=== PATIENT | female | born 1955 | race Caucasian/White ===

== ENCOUNTER → 2018-05-08 | Outpatient (CLI) | payer OTHER ==
[~2018-05-08] MED LIST: CETI10 PO; CHLORHEXIDINE GLUCONATE 2 % 1 PACK (2 CLOTHS) TOPICAL PRN; CHOL1CAP34 PO; DEXTROSE 5%-LACTATED RING INJ 1,000 ML IV SCH; DICY10CA12 PO; DO NOT ADM ANY ANTICOAGULANT DRUGS PRN; DULO1CAP PO; KETAMINE HCL 500 MG/10 ML VIAL ONE; LACTATED RINGER'S 1000 ML IV PRN; LEVE500T8 PO; LIDOCAINE HCL 1% PF 5 ML SYRINGE OTHER ONE; LOMO2.5T PO; METOPROLOL TARTRATE 25 MG TAB PO PRN; MIDAZOLAM HCL 2 MG/2 ML VIAL ONE; MONT10TA4 PO; PROPOFOL 200 MG/20 ML AMP IV ONE; SODIUM CHLORID 0.9% 500 ML IV PRN; VENTAER INH; ZOLP10TA3 PO
[2018-05-08 08:24] VITALS: BP 172/88; PULSE 66; RESP 18; TEMP 98.9; O2SAT 97
--- NOTE | 2018-05-08 09:59 | GIPROC ---
[facility] [address] [facility]. [facility], [address] EGD PROCEDURE REPORT EXAM DATE: 05/08/2018 PATIENT NAME: Thalia Ochoa MR #: [id number] BIRTHDATE: 1955 ATTENDING: Alison Fonseca MD ORDER #: [id number] SEAMAN: Perico Condon and Yanique Bledsoe STATUS: outpatient INDICATIONS: The patient is a 63 yr old female here for an EGD due to diarrhea PROCEDURE PERFORMED: EGD w/ biopsy MEDICATIONS: None and Per Anesthesia. TOPICAL ANESTHETIC: none CONSENT: The patient understands the risks and benefits of the procedure and understands that these risks include, but are not limited to: sedation, allergic reaction, infection, perforation and/or bleeding. Alternative means of evaluation and treatment include, among others: physical exam, x-rays, and/or surgical intervention. The patient elects to proceed with this endoscopic procedure. medical equipment was checked for proper function. Hand hygiene and appropriate measures for infection prevention was taken. After the risks, benefits and alternatives of the procedure were thoroughly explained, Informed consent was verified, confirmed and timeout was successfully executed by the treatment team. The patient was anesthetized with topical anesthesia and the EC-3490Li (Pedi C) endoscope was introduced through the mouth and advanced to the second portion of the duodenum. Retroflexed views revealed a hiatal hernia The gastroscope was then slowly withdrawn and removed. Gastritis antrum-biopsy duodenum normal-biopsy Schatzki's ring-biopsy. ADVERSE EVENTS: There were no complications. IMPRESSIONS: 1. Gastritis antrum-biopsy duodenum normal-biopsy Schatzki's ring-biopsy 2. Retroflexed views revealed a hiatal hernia RECOMMENDATIONS: 1. Await biopsy results. Biopsy results will not be ready for 7-10 days. If you don't hear from us in two weeks, call our office for biopsy results. 2. Anti-reflux regimen 3. Continue PPI 4. Avoid NSAIDS PATIENT CONDITION: stable DISPOSITION: Home REPEAT EXAM: Return 3 years EGD Alison Fonseca MD eSigned: Alison Fonseca MD 05/08/2018 9:59 AM cc: Leslee Wagoner M.D. PATIENT NAME: Thalia Ochoa MR#: [id number]
--- NOTE | 2018-05-08 10:02 | GIPROC ---
[facility] [address] [facility]. [facility], [address] COLONOSCOPY PROCEDURE REPORT EXAM DATE: 05/08/2018 PATIENT NAME: Thalia Ochoa MR #: [id number] BIRTHDATE: 1955 ENDOSCOPIST: Alison Fonseca MD ORDER #: [id number] MANAGEMENT AIDE: Perico Condon and Yanique Bledsoe STATUS: outpatient INDICATIONS: The patient is a 63 yr old female here for a colonoscopy due to screening, diarrhea PROCEDURE PERFORMED: Colonoscopy with biopsy MEDICATIONS: None and Per Anesthesia. PREP QUALITY: fair PREP TYPE:Other: ESTIMATED BLOOD LOSS: None CONSENT: The patient understands the risks and benefits of the procedure and understands that these risks include, but are not limited to: sedation, allergic reaction, infection, perforation and/or bleeding. Alternative means of evaluation and treatment include, among others: physical exam, x-rays, and/or surgical intervention. The patient elects to proceed with this endoscopic procedure. medical equipment was checked for proper function. Hand hygiene and appropriate measures for infection prevention was taken. After the risks, benefits and alternatives of the procedure were thoroughly explained, Informed consent was verified, confirmed and timeout was successfully executed by the treatment team. A digital exam revealed external hemorrhoids The Pentax EC-3490Li endoscope was introduced through the anus and advanced to the cecum, which was identified by both the appendix and ileocecal valve. The instrument was then slowly withdrawn as the colon was fully examined. COLON FINDINGS: Diverticulosis sigmoid,descending lipoma ascending biopsy random biopsy ascending/descending-biopsy polyp sigmoid-biopsy. Retroflexed views revealed internal hemorrhoids and Retroflexed views revealed small internal hemorrhoids The scope was then completely withdrawn from the patient and the procedure terminated. PROCEDURE WITHDRAWAL TIME:6minutes ADVERSE EVENTS: There were no complications. IMPRESSIONS: 1. Diverticulosis sigmoid,descending lipoma ascending biopsy random biopsy ascending/descending-biopsy polyp sigmoid-biopsy 2. Retroflexed views revealed internal hemorrhoids 3. Retroflexed views revealed small internal hemorrhoids 4. Revealed external hemorrhoids RECOMMENDATIONS: 1. Await biopsy results. Biopsy results will not be ready for 7-10 days. If you don't hear from us in two weeks, call our office for results. 2. Benefiber 2 tsp daily 3. High fiber diet 4. Yearly rectal exams 5. Probiotics from any [facility] or health food store RECALL: Return 3 years Colonoscopy Alison Fonseca MD eSigned: Alison Fonseca MD 05/08/2018 10:02 AM cc: Leslee Wagoner M.D. PATIENT NAME: Thalia Ochoa MR#: [id number]
[2018-05-08 10:10] VITALS: BP 149/78; PULSE 60; RESP 18; O2SAT 97
--- NOTE | 2018-05-08 18:43 | EKG ---
Date Performed: 05/08/2018 Time Performed: 08:09:24 PTAGE: 63 years EKG: Sinus rhythm NORMAL ECG Since the PREVIOUS TRACING , no significant change noted PREVIOUS TRACIN10/23/2012 11.25 DOCTOR: Maddi Bernal Interpretating Date/Time 05/08/2018 18:41:50
== END ==
LOC: HEND 07:51
PROVIDERS: ATTEND Internal Medicine Gastroenterology
DX: K29.70 Gastritis, unspecified, without bleeding (principal); K22.2 Esophageal obstruction; K44.9 Diaphragmatic hernia without obstruction or gangrene; K63.5 Polyp of colon; K57.30 Diverticulosis of large intestine without perforation or abscess without bleeding; K64.4 Residual hemorrhoidal skin tags; K64.8 Other hemorrhoids; R01.1 Cardiac murmur, unspecified; J44.9 Chronic obstructive pulmonary disease, unspecified; J45.909 Unspecified asthma, uncomplicated; R19.7 Diarrhea, unspecified
CPT/HCPCS: 00813; 43239; 45380; 88305; 88312; 93005; J2250